=== PATIENT | female | born 1955 | race Caucasian/White ===

== ENCOUNTER 2021-02-08 12:54 | Outpatient (REF) | payer SELFPAY ==
[2021-02-08 15:56] LABS: Binax Internal Control QC Valid; Binax Lot number: 9864; Binax Now Covid-19 Ag Negative (Negative)
== END 2021-02-08 12:55 | disposition home or self-care (01) ==
LOC: HO.LAB 12:54
PROVIDERS: Visit Provider Internal Medicine
DX: Z20.822 Contact with and (suspected) exposure to COVID-19 (principal)
CPT/HCPCS: 36415; C9803

== ENCOUNTER 2021-04-10 05:38 | Emergency (ER) | payer OTHER, SELFPAY ==
--- NOTE | ~2021-04-10 | XR_ITS ---
EXAMINATION: XR HIP, LEFT CLINICAL INFORMATION: Left hip pain. COMPARISON: None TECHNIQUE: Two views of the left hip. FINDINGS: A tiny linear density seen along the lateral margin of the superior left acetabulum. Joint spaces are unremarkable. The bony pelvis is intact. There is no acute fracture or dislocation. XR/XR hip LT min 2V IMPRESSION: Tiny linear density along the lateral margin of the superior left acetabulum is of indeterminate age, but the overall appearance is not acute and could be degenerative in nature. No acute fracture.
--- NOTE | ~2021-04-10 | XR_ITS ---
EXAMINATION: XR LUMBOSACRAL SPINE CLINICAL INFORMATION: Back pain. COMPARISON: None TECHNIQUE: Three views of the lumbosacral spine. FINDINGS: There is normal lumbar lordosis and spinal alignment. The vertebral bodies are intact. Mild degenerative disc disease is seen at L5-S1 with disc space narrowing, sclerosis and adjacent endplates and minimal marginal osteophyte formation. The soft tissues are unremarkable. XR/XR lumbar spine 2-3V IMPRESSION: L5-S1 mild degenerative disc disease.
[2021-04-10 05:42] VITALS: BP 127/80; PULSE 82; RESP 16; TEMP 37.4; O2SAT 98; BMI 21.9
--- NOTE | 2021-04-10 06:53 | ED_ITS ---
HPI - Extremity Problem General Chief complaint: Extremity Problem Stated complaint: Leg pain Time Seen by Provider: 04/10/21 06:46 Source: patient Mode of arrival: ambulatory Limitations: no limitations History of Present Illness HPI Narrative: left lower expremity pain since Yesterday,she was helping a family member to take a bath,no fall no injury pain radiated post aspect left tight,left leg,denies urine incontinence,weakness,she is ambulatory to the ED MD Complaint: extremity pain Onset (ago): day(s) (1) Pain Consistency: constant Location: left Severity scale (1-10): 5 Quality: burning Radiation: none Relieving factors: nothing Exacerbating factors: weight bearing and walking Associated symptoms: denies other symptoms Related Data Previous Rx's Medication Instructions Recorded ibuprofen 800 mg tablet 800 mg PO Q8H PRN #30 tab 04/10/21 oxycodone 5 mg capsule 5 mg PO Q8H PRN #12 cap 04/10/21 prednisone 20 mg tablet 60 mg PO DAILY #12 tab 04/10/21 Allergies Allergy/AdvReac Type Severity Reaction Status Date / Time No Known Allergies Allergy Verified 04/10/21 05:41 Review of Systems Review of Systems: Yes all other systems are reviewed and are negative Constitutional: Constitutional: Denies fever(s) and Denies weakness Cardiovascular: Cardiovascular: Denies leg edema Respiratory: Respiratory: Reports no additional respiratory complaints Musculoskeletal: Musculoskeletal: Reports as per HPI and Denies numbness Neurologic: Denies focal weakness, Denies numbness, Denies paresthesias and Denies weakness [facility] Past Medical History [facility] Narrative: denies Social History Social History Advance Directives: No Advance Directives Information Provided: No Physical Exam Vital Signs: Vital Signs: Last Vital Signs Temp 98.1 F 04/10/21 06:54 Pulse 75 04/10/21 06:54 Resp 16 04/10/21 06:54 BP 141/83 H 04/10/21 06:54 Pulse Ox 99 04/10/21 06:54 BMI result Body Mass Index 21.9 Const: General: cooperative, healthy appearing and no acute distress Nutritional Appearance: average body habitus Orientation/consciousness: patient oriented x3 HENMT: Head: Yes normal to inspection General nose exam: Normal external nose present Face and sinus: Yes normal facial exam Neck: Neck: Yes normal visual inspection and Yes full ROM Chest: Chest palpation & inspection: normal inspection of the chest Resp: Effort & Inspection: normal respiratory effort Auscultation: clear to auscultation bilaterally Cardio: Jugular venous distension: no JVD Rate: regular rate Rhythm: regular rhythm GI: Inspection: Yes normal to inspection and No Abdominal wall edema Palpation (GI): Soft to palpation : General: Yes no CVA tenderness Back/Spine/Pelvis: Back: no CVA tenderness Thoracic/Lumbar Spine: thoracic and lumbar spine normal to inspection Pelvis: no pain with anterior-posterior compression Skin: General skin exam: elasticity normal Neuro: General: patient oriented x3 Cranial nerves: Yes CN's II-XII intact bilaterally Cognition (Neuro): normal cognition Coordination: [id number] test normal Extrem: Other: good pulses present left foot,no swelling noted General: Yes normal to inspection and Yes full ROM Right upper extremity: normal to inspection Left lower extremity: normal to inspection, full ROM, normal capillary refill and lower leg (left straight leg raising test at 30 degree) Details: Negative for no erythema, no tenderness and no localized swelling Course Reevaluation(s) Reevaluation #1: She is feeling much better, she has no deficit in strenght or sensation, there is no red flags such as perianal numbness, urine incontinence stool incontinence, she is able to ambulate. We will discharge home Motrin/ prednisone /oxycodone. Time: 08:05 MDM - Extremity (Nontraumatic) Imaging Data ls spine: Radiologist's impression: Back pain. COMPARISON: None TECHNIQUE: Three views of the lumbosacral spine. FINDINGS: There is normal lumbar lordosis and spinal alignment. The vertebral bodies are intact. Mild degenerative disc disease is seen at L5-S1 with disc space narrowing, sclerosis and adjacent endplates and minimal marginal osteophyte formation. The soft tissues are unremarkable. XR/XR lumbar spine 2-3V IMPRESSION: L5-S1 mild degenerative disc disease. hip xray: Radiologist's impression: COMPARISON: None TECHNIQUE: Two views of the left hip. FINDINGS: A tiny linear density seen along the lateral margin of the superior left acetabulum. Joint spaces are unremarkable. The bony pelvis is intact. There is no acute fracture or dislocation. XR/XR hip LT min 2V IMPRESSION: Tiny linear density along the lateral margin of the superior left acetabulum is of indeterminate age, but the overall appearance is not acute and could be degenerative in nature. No acute fracture. ? Dictated By: ARMANDEEP OAKLEY MD Signed By: <Electronically signed by RAMANDEEP OAKLEY MD in OV> 04/10/21 0756 DD/ 0727 Discharge Plan Discharge Clinical Impression: Sciatic leg pain Patient Disposition: Home, Self-Care Instructions: Sciatica (ED) Additional Instructions: Follow up with your Primary Care Doctor Sunday ,return if worse. Prescriptions: New oxycodone 5 mg capsule 5 mg PO Q8H PRN (Reason: pain) Qty: 12 0RF ibuprofen 800 mg tablet 800 mg PO Q8H PRN (Reason: pain) Qty: 30 0RF prednisone 20 mg tablet 60 mg PO DAILY Qty: 12 0RF Stand Alone Forms: Work/School Release Interventions: ED Discharge Assessment Last Done: 04/10/21 08:14 Discharge Date/Time: 04/10/21 08:15
[2021-04-10 06:54] VITALS: BP 141/83; PULSE 75; RESP 16; TEMP 36.7; O2SAT 99
[2021-04-10] MEDS: Ketorolac Tromethamine 60 MG/2 ML VIAL IM (07:00)
[2021-04-10] MEDS: oxyCODONE HCl Immed Release 5 MG TABLET PO (08:03)
== END 2021-04-10 08:15 | disposition home or self-care (01) ==
PROVIDERS: Emergency Provider Emergency Medicine
DX: M54.42 Lumbago with sciatica, left side (principal); M79.605 Pain in left leg; Z79.899 Other long term (current) drug therapy
CPT/HCPCS: 72100; 73502; 96372; 99284; J1885